=== PATIENT | female | born 1990 | race Caucasian/White ===

== ENCOUNTER 2022-08-02 16:37 | Outpatient (CLI) | payer OTHER, SELFPAY | END 2022-08-02 16:38 | disposition home or self-care (01) | LOC: AMB 08-10 13:29 | PROVIDERS: Visit Provider Family Medicine | DX: R06.09 Other forms of dyspnea (principal); R50.9 Fever, unspecified; R05.9 Cough, unspecified | CPT/HCPCS: A0425; A0427 ==